=== PATIENT | female | born 1935 | race Caucasian/White ===

== ENCOUNTER 2017-10-12 13:58 | Emergency (ER) | payer OTHER ==
[~2017-10-12] VITALS: Ht 157.5 cm; Wt 59.0 kg
[~2017-10-12 13:58] MED LIST: ATORVASTATIN CA10 M1 PO; CIPRO 500MG TA500 MG PO; COLACE100 MG PO; GOOD SENSE ASPI81 M1 PO; HYDRALAZINE HCL10 M1 PO; HYDRALAZINE HCL10 MG PO; HYDRALAZINE10 MG PO; LORAZEPAM0.5 MG PO; METAMUCIL1 PAC PO; METRONIDAZOLE500 MG PO; NORTRIPTYLINE H10 M1 PO; NORVASC 5MG TAB5 MG PO; OLANZAPINE5 MG PO; PAROXETINE HYDR40 MG PO; STOOL SOFTENER100 M2 PO; ZYPREXA5 M1 PO
--- NOTE | 2017-10-12 14:35 | ED AMS/SEIZURE/WEAK/DIZZY ---
History of Present Illness General Chief Complaint: General Adult Stated Complaint: WEAKNESS Source: patient Exam Limitations: poor historian Vital Signs & Intake/Output Vital Signs & Intake/Output Vital Signs Date Time Temp Pulse Resp B/P B/P Pulse O2 O2 Flow FiO2 Mean Ox Delivery Rate 10/13 1202 98.0 72 17 138/64 94 Room Air / 0619 97.7 70 18 143/63 95 04/ 0210 97.5 62 18 157/70 98 Room Air 10/12 2143 61 18 132/62 97 Room Air / 1958 98.8 58 18 123/58 97 Room Air 10/12 1608 98.5 56 18 155/65 99 Room Air / 1456 96 Room Air / 1408 96.8 70 18 148/80 96 Room Air ED Intake and Output 10/13 0000 10/12 1200 Intake Total Output Total Balance Patient 130 lb Weight Weight Estimated Measurement Method Allergies Coded Allergies: NO KNOWN ALLERGIES (06/08/16) Reconcile Medications Atorvastatin Calcium 10 MG TABLET 1 TAB PO DAILY CHOLESTEROL (Reported) Ciprofloxacin HCl (Cipro) 500 MG TABLET 1 TAB PO BID UTI Docusate Sodium (Stool Softener) 100 MG CAPSULE 1 CAP PO QPM CONSTIPATION ( Reported) Hydralazine HCl 10 MG TABLET 1 TAB PO DAILY HEART (Reported) Oxybutynin Chloride (Oxybutynin Chloride ER) 10 MG TAB.ER.24 1 TAB PO DAILY BLADDER (Reported) Triage Note: PT TO ER WITH SPOUSE C/C "WEAKNESS" FOR UNKNOWN AMOUNT OF TIME. PATIENT POOR HISTORIAN. STATES, "SHE IS DEPRESSED AGAIN". PT DENIES PAIN Triage Nurses Notes Reviewed? yes Onset: Gradual Duration: getting worse Timing: recent history Severity: severe HPI: Patient is a 82-year-old female hypertension, diverticulitis, depression and dyslipidemia who presents emergency room brought in by however immediately left the emergency room in which history is limited due to patient being a poor historian who states that she's been having unknown duration of intermittent episodes of dizziness and room spinning sensation and severe weakness and fatigue. Patient denies any headache blurred vision fevers chills chest pain arm pain jaw pain nausea vomiting abdominal pain Patient denies any illicit drug use denies any smoking or alcohol use. Patient' s last bowel movement was within last 24 hours no blood no melena, Patient can tolerate by mouth patient denies any new medications states she is compliant with her medications Patient stating that she's had intermittent episodes of presyncope and lightheaded sensation however no syncope has occurred (Guillermo Walters) Past History Travel History Traveled to [place] past 21 day No Medical History Any Pertinent Medical History? 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 Hx Contributory? No (Guillermo Walters) Review of Systems Review of Systems Constitutional: Reports: see HPI, malaise, weakness. EENTM: Reports: no symptoms. Respiratory: Reports: no symptoms. Cardiovascular: Reports: no symptoms. GI: Reports: no symptoms. Genitourinary: Reports: no symptoms. Musculoskeletal: Reports: no symptoms. Skin: Reports: no symptoms. Neurological/Psychological: Reports: no symptoms. Hematologic/Endocrine: Reports: no symptoms. Immunologic/Allergic: Reports: no symptoms. All Other Systems: Reviewed and Negative (Guillermo Walters) Physical Exam Physical Exam General Appearance: lethargic Head: atraumatic Eyes: Bilateral: normal appearance, PERRL, EOMI. Ears, Nose, Throat: normal pharynx, normal ENT inspection, hearing grossly normal Neck: normal inspection, supple, full range of motion Respiratory: normal breath sounds, chest non-tender, no respiratory distress Cardiovascular: regular rate/rhythm Peripheral Pulses: 2+ radial (R) Gastrointestinal: normal bowel sounds, soft, non-tender Extremities: normal range of motion Neurologic/Psych: no motor/sensory deficits, awake, alert, oriented x 3 Skin: intact, normal color, warm/dry Lymphatic: no anterior cervical benson Core Measures ACS in differential dx? Yes CVA/TIA Diagnosis No Sepsis Present: No Sepsis Focused Exam Completed? No (Guillermo Walters) Progress Differential Diagnosis: arrythmia, alcohol intoxication, anemia, benign positional vertigo, CVA/stroke, dehydration, drug intoxication, encephalitis, electrolyte imbalance, GI bleed, hypoglycemia, hypoxia, intracranial Hem., intracranial mass/tumor, labrynthitis, meningitis, Meniere's disease, migraine HINOJOSA, multiple sclerosis, pneumonia, postural hypotension, presyncope, post- traumatic vertigo, sepsis, seizure disorder, subarachnoid Hem., UTI/pyelo, vertebrobasilar insuff Plan of Care: Orders Procedure Date/time Status Regular Diet 10/13 B Active Continuous Observation Monitor 10/12 171 Active ED CRISIS PSYCH CONSULT 10/12 1713 Active Add-on Test (ER Only) 10/12 1540 Active MISTAKE 10/12 1510 Active Telemetry/Tire Building Supervisor 10/12 1501 Active URINE DRUG SCREEN FOR ER ONLY 10/12 1501 Complete CULTURE,URINE 10/12 1500 Active EKG 10/12 1405 Active URINALYSIS 10/12 1359 Complete THYROID STIMULATING HORMONE 10/12 1359 Complete TROPONIN LEVEL 10/12 1359 Complete MAGNESIUM 10/12 1359 Complete LACTIC ACID 10/12 1359 Complete FREE T4 10/12 1359 Complete ETHANOL 10/12 1359 Complete COMPREHENSIVE METABOLIC PANEL 10/12 1359 Complete CBC WITHOUT DIFFERENTIAL 10/12 1359 Complete Current Medications Sig/Florencio Start time Last Medication Dose Stop Time Status Admin Ciprofloxacin 500 MG BID 10/12 2200 UNVr 10/13 (Cipro) 10/16 2159 1010 Risperidone 1 MG ONCE ONE 10/13 1999 CAN (Risperidone) 10/12 2000 Atorvastatin Calcium 10 MG DAILY 10/12 1730 UNVr 10/13 (Lipitor) 1010 Laboratory Tests 10/12/17 1659: Lactic Acid Cancelled 10/12/17 1530: Anion Gap 13, Estimated GFR > 60, BUN/Creatinine Ratio 16.7, Glucose 111 H, Lactic Acid 1.1, Calcium 10.0, Magnesium 2.0, Total Bilirubin 0.5, AST 21, ALT 32, Alkaline Phosphatase 76, Troponin I < 0.01, Total Protein 6.5, Albumin 3.8, Globulin 2.7, Albumin/Globulin Ratio 1.4, TSH 1.280, Free T4 1.21, CBC w Diff NO MAN DIFF REQ, RBC 4.90, MCV 90.4, MCH 28.8, MCHC 31.8 L, RDW 15.1 H, MPV 8.7, Gran % 69.6, Lymphocytes % 19.5 L, Monocytes % 7.9, Eosinophils % 2.3, Basophils % 0.7, Absolute Granulocytes 5.1, Absolute Lymphocytes 1.4, Absolute Monocytes 0.6, Absolute Eosinophils 0.2, Absolute Basophils 0, Serum Alcohol < 10.0 10/12/17 1501: Magnesium Cancelled, TSH Cancelled, Free T4 Cancelled, Serum Alcohol Cancelled 10/12/17 1500: Urine Opiates Screen < 100, Methadone Screen < 40, Barbiturate Screen < 60, Ur Phencyclidine Scrn < 6.00, Amphetamines Screen < 100, U Benzodiazepines Scrn < 85, Urine Cocaine Screen < 50, Urine Cannabis Screen < 5.00, Urine Color YEL, Urine Clarity HAZY H, Urine pH 6.0, Ur Specific [place] 1.010, Urine Protein NEG, Urine Ketones NEG, Urine Nitrite POS H, Urine Bilirubin NEG, Urine Urobilinogen 0.2, Ur Leukocyte Esterase MOD H, Ur Microscopic SEDIMENT EXAMINED , Urine WBC 10-15 H, Ur Epithelial Cells FEW, Urine Bacteria MANY H, Granular Casts RARE H, Urine Hemoglobin NEG, Urine Glucose NEG 10/12/17 1359: Glucose 2 Hour Cancelled 10/12/17 1359: Glucose 1/2 Hour Cancelled 10/12/17 1359: Glucose 1 Hour Cancelled 10/12/17 1359: Fasting Glucose Cancelled Microbiology 10/12 1500 URINE ROUT: Urine Culture - RES GRAM NEGATIVE RODS Patient is a poor historian on initial evaluation however patient is noted to be lethargic however is alert and oriented and is following all commands appropriately no concerns of neurovascular deficit No suspicion of CVA She denies any homicidal or suicidal ideation denies even having a history of depression, denies any auditory or visual hallucinations, Nursing does state that patient had significant profound weakness when putting patient from the wheelchair to the bed prior to me evaluating the patient. After IV fluids were administered patient did have improvement of initial clinical presentation of lethargy. No concerns of sepsis blood work was unremarkable patient does have concerns of urinary tract infection Patient was noted to be able to get up out of bed and ambulate with a walker without any assistance and had normal steady gait. Patient does admit that she feels anxious while being in the emergency room. When returning patient to her room she then became excessively anxious and stating that she is severely depressed and stating over and over "I want to , I want to , I want to ," Crisis evaluation will be ordered sitter will be placed Crisis evaluated patient disposition still is pending, discussed handoff with Initial ED EK BPM, LAD Hand-Off Endorsed To: Ho Leblanc MD Endorsed Time: 1800 Pending: consult (Guillermo Walters) Hand-Off Endorsed To: Roge Saldana MD Endorsed Time: 1900 Pending: consult (Ho Leblanc MD) Hand-Off Endorsed To: Preet Ching MD Endorsed Time: 0700 Pending: consult (RE-EVAL) Comments: Patient has been seen and evaluated by outreach clinician. Patient is on antibiotics for UTI. Patient will be reevaluated in the morning. (Roge Saldana MD) Comments: 10/13/2017 1:30:10 PM patient signed out to me by Dr. 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 Patient has been evaluated by the outreach clinician feels the patient is stable from a psychiatric standpoint for discharge. They offered mental health follow-up BUT this was declined by the patient and her . 10/13/2017 1:47:03 PM I have updated Yumiko and her . Her states that she is doing better than when she first arrived to the emergency department. She appears comfortable and offers no complaint at this time. I FEEL she is stable for outpatient management of her urinary tract infection. (Preet Ching MD) Departure Departure Condition: Guarded Referrals: Shala Olivo (PCP/Family) Departure Forms: Customer Survey General Discharge Information (Guillermo Walters) PA/FACILITIES MANAGEMENT EXECUTIVE Co-Sign Statement Statement: ED Attending supervision documentation- x I saw and evaluated the patient. I have also reviewed all the pertinent lab results and diagnostic results. I agree with the findings and the plan of care as documented in the PA's/FACILITIES MANAGEMENT EXECUTIVE's documentation. [] I have reviewed the ED Record and agree with the PA's/FACILITIES MANAGEMENT EXECUTIVE's documentation. [] Additions or exceptions (if any) to the PAs/FACILITIES MANAGEMENT EXECUTIVE's note and plan are summarized below: [] (Ho Leblanc MD) Departure Disposition: HOME OR SELF CARE Clinical Impression Primary Impression: Depression Qualifiers: Depression Type: unspecified Qualified Code: F32.9 - Major depressive disorder, single episode, unspecified Secondary Impressions: Anxiety Dizziness UTI (urinary tract infection) Qualifiers: Urinary tract infection type: site unspecified Hematuria presence: without hematuria Qualified Code: N39.0 - Urinary tract infection, site not specified Weakness Additional Instructions: Cipro as prescribed. Maintain a good fluid intake. Follow-up with her primary care physician within 24-48 hours for reevaluation. Return if any concerns or sudden worsening. Please note that there might be incidental findings in your evaluation that are unrelated to the current emergency department visit. Please notify your primary care doctor about this emergency department visit in order to obtain and review all of the testing performed so that these incidental findings can be monitored as needed. If you had an x-ray performed, please understand that some fractures may not be seen on the initial set of x-rays. If your symptoms persist you might need a repeat set of x-rays to check for such a fracture. If you had a laceration evaluated, please understand that foreign bodies such as glass or wood may not be visible to the naked eye or on plain x-rays. If the wound becomes red, swollen, increasingly more painful or if there is any drainage from the wound, please have it reevaluated by a physician for the possibility of a retained foreign body. If you're unable to follow up as outlined in the discharge instructions please return to the emergency department. Thank you for choosing the [facility] Emergency Department for your care. It was a pleasure to serve you today. Preet Ching M.D. [facility] Prescriptions: Current Visit Scripts Ciprofloxacin HCl (Cipro) 1 TAB PO BID #14 TAB (Jeane ADLER,Preet Coppola) Critical Care Note Critical Care Note Critical Care Time: 30-74 min (Guillermo Walters)
[2017-10-12] MEDS ORDERED: OXYBUTYNIN CHLO10 M1 PO (15:09)
[2017-10-12] MEDS ORDERED: STOOL SOFTENER100 M3 PO (15:11)
[2017-10-12 15:57] LABS: ABSOLUTE BASOPHIL COUNT 0 /CUMM (0.0-0.2); ABSOLUTE EOSINOPHIL COUNT 0.2 /CUMM (0.0-0.7); ABSOLUTE GRANULOCYTE CT 5.1 /CUMM (1.4-6.5); ABSOLUTE LYMPH COUNT 1.4 /CUMM (1.2-3.4); ABSOLUTE MONOCYTE COUNT 0.6 /CUMM (0.10-0.60); BASOPHIL % 0.7 % (0.0-2.0); EOSINOPHIL % 2.3 % (0-5); GRANULOCYTE % 69.6 % (42.2-75.2); HEMATOCRIT 44.3 % (37-47); MEAN CORPUSCULAR HGB 28.8 PG (27.0-31.0); MEAN CORPUSCULAR HGB CONC 31.8 G/DL (33.0-37.0); MEAN CORPUSCULAR VOLUME 90.4 FL (81.0-99.0); MEAN PLATELET VOLUME 8.7 FL (7.4-10.4); PLATELET COUNT 328 /CUMM (130-400); RBC DISTRIBUTION WIDTH 15.1 % (11.5-14.5); WHITE BLOOD CELL COUNT 7.3 /CUMM (4.8-10.8)
[2017-10-12] MEDS ORDERED: CIPRO500 M1 PO (16:58)
--- NOTE | 2017-10-12 19:05 | ED PSYCH CRISIS CONSULTATION ---
See Addendum Crisis Consult Basic Assessment Date of Consult: 10/12/17 Responsible Person/Accompanied By: Brought to the ED by her Insurance Authorization: Insurance #1: Insurance name[facility] Phone number: Policy number: [id number] Group number: Authorization number: ED Provider: Patient's ED Provider: Guillermo Walters Primary Care Physician: Patient's PCP: Shala Olivo PCP's Current Psychiatrist: None Chief Complaint: General Adult Patient's Quote: "I don't know what's wrong, something is wrong." Present Illness: The patient is an 82 year old , female brought to the ED, by her for weakness and depression. The patient is alert and oriented to person, place and time, however answered the majority of questions "I don't know." She became tearful when answering questions and kept repeating "I'm scared," but I don't understand it." She was unable to elaborate on why she was scared and what prompted her to come to the ED. She stated that she is unsure if she is depressed or anxious, however believes that she feels helpless, hopeless, worthless and useless. She denies any SI / HI /AH / VH, however states "I want to ." When asked to elaborate on wanting to , she states "I don't understand it," but confirms she made the statements. She lives with her (Roberto), and sates she has 5 children. When asked if she is close with her children, she replies, " I don't know." She reports that her stressors, is that she "does nothing but sit in a chair all day." She was not able to elaborate on why she has been doing nothing and if that is a change for her. She has a long history of depression and subsequent treatment. She has been treated at [facility] in IOP, OPS and [facility]PS. Per records she has also been sent to [facility] in the past. Per records she did not do well in IOP and was transitioned to OPS, who recommended that she follow up with the [facility] (March,). The patient states that she was not sure if she followed up with [facility] and was not sure, if she was on medications for her mental health. She is not sure what would be helpful at this time. PRISCILA spoke with her , Roberto Navarro ([phone]), for collateral information. Roberto reports that the patient does have a long history of mental health issues and subsequent treatment. Roberto states that the patient is not currently in any treatment and stopped her medications, because "they made her constipated." He reports that her last hospitalization was at [facility], however that they were very unhappy with their experience. Roberto states that the patient was doing okay until the last week and a half. He states that she became depressed and did not partake in any of her normal activities (reading & watching tv), but instead "she has been sitting in a chair and looking at the wall." He has not heard her make any suicidal statements, however is concerned about her depression. He believes that she requires another hospitalization at this time and would like it to be on [facility]. Patient's Address: [address] [place] [address] Other Phone Number: Who Do You Live With? Spouse Family/Informants Interviewed: - Roberto Navarro- [phone] Allergies - Coded Allergies: NO KNOWN ALLERGIES (06/08/16) Current Medications - Scheduled Medications Atorvastatin Calcium 10 MG TABLET 1 TAB PO DAILY CHOLESTEROL (Reported) [facility] 2136 Ciprofloxacin HCl (Cipro) 500 MG TABLET 1 TAB PO BID UTI #14 TAB Prescribed by Guillermo Gage on 10/12/17 Docusate Sodium (Stool Softener) 100 MG CAPSULE 1 CAP PO QPM CONSTIPATION ( Reported) Entered as Reported by Isai Alves on 10/12/17 1511 Hydralazine HCl 10 MG TABLET 1 TAB PO DAILY HEART #180 (Reported) Entered as Reported by Isai Alves on 05/15/16 0820 Oxybutynin Chloride (Oxybutynin Chloride ER) 10 MG TAB.ER.24 1 TAB PO DAILY BLADDER #30 (Reported) Entered as Reported by Isai Alves on 10/12/17 1509 Laboratory Results: Laboratory Tests 10/12/17 1659: Lactic Acid Cancelled 10/12/17 1530: Anion Gap 13, Estimated GFR > 60, BUN/Creatinine Ratio 16.7, Glucose 111 H, Lactic Acid 1.1, Calcium 10.0, Magnesium 2.0, Total Bilirubin 0.5, AST 21, ALT 32, Alkaline Phosphatase 76, Troponin I < 0.01, Total Protein 6.5, Albumin 3.8, Globulin 2.7, Albumin/Globulin Ratio 1.4, TSH 1.280, Free T4 1.21, CBC w Diff NO MAN DIFF REQ, RBC 4.90, MCV 90.4, MCH 28.8, MCHC 31.8 L, RDW 15.1 H, MPV 8.7, Gran % 69.6, Lymphocytes % 19.5 L, Monocytes % 7.9, Eosinophils % 2.3, Basophils % 0.7, Absolute Granulocytes 5.1, Absolute Lymphocytes 1.4, Absolute Monocytes 0.6, Absolute Eosinophils 0.2, Absolute Basophils 0, Serum Alcohol < 10.0 10/12/17 1501: Magnesium Cancelled, TSH Cancelled, Free T4 Cancelled, Serum Alcohol Cancelled 10/12/17 1500: Urine Opiates Screen < 100, Methadone Screen < 40, Barbiturate Screen < 60, Ur Phencyclidine Scrn < 6.00, Amphetamines Screen < 100, U Benzodiazepines Scrn < 85, Urine Cocaine Screen < 50, Urine Cannabis Screen < 5.00, Urine Color YEL, Urine Clarity HAZY H, Urine pH 6.0, Ur Specific [place] 1.010, Urine Protein NEG, Urine Ketones NEG, Urine Nitrite POS H, Urine Bilirubin NEG, Urine Urobilinogen 0.2, Ur Leukocyte Esterase MOD H, Ur Microscopic SEDIMENT EXAMINED , Urine WBC 10-15 H, Ur Epithelial Cells FEW, Urine Bacteria MANY H, Granular Casts RARE H, Urine Hemoglobin NEG, Urine Glucose NEG 10/12/17 1359: Glucose 2 Hour Cancelled 10/12/17 1359: Glucose 1/2 Hour Cancelled 10/12/17 1359: Glucose 1 Hour Cancelled 10/12/17 1359: Fasting Glucose Cancelled Microbiology 10/12 1500 URINE ROUT: Urine Culture - RECD Past History Past Medical History Neurological: NONE EENT: NONE Cardiovascular: hypertension, hyperlipidemia Respiratory: NONE Gastrointestinal: NONE Hepatic: NONE Renal: NONE Musculoskeletal: spinal stenosis Psychiatric: depression Endocrine: NONE Blood Disorders: NONE Cancer(s): NONE 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 Physical Limitations (Interventions): Ambulates with a walker at times Psychiatric Treatment History Psych Treatment Psychiatric Treatment Yes Inpatient Treatment Yes Outpatient Treatment Yes Location of Treatment [facility], [facility], [facility], [facility] Reason for Treatment Depression Dates of Treatment Multiple dates. Last OPS in March 2017, [facility] 2015, [facility]- 2015 Response to Treatment The patients reports that they were not happy with [facility]. Per records she did not do well in IOP and was transitioned to OPS for a period of time before being referred to the [facility]. Diagnosis by History: Major Depressive Disorder Substance Use/Abuse History Drug Use/Abuse Substances Used/Abused No First Use N/A Last Used N/A How much used/taken N/A How often N/A For how long N/A Route of use N/A Substance Abuse Treatment Substance Abuse Treatment Past Substance Abuse TX No Inpatient Treatment No Outpatient Treatment No Location of Treatment N/A Reason for Treatment N/A Dates of Treatment N/A Response to Treatment N/A Comments: N/A Current Mental Status Mental Status Orientation: Person, Place, Situation Affect: Anxious (tearful) Speech: Soft (at times) Neuro-vegetative: Helpless, Sleep Disturbance, Decrease in normal daily activites. Appearance Appearance- Dress/Hygiene: She was lying in bed, neat clean and well kempt. Behaviors Thought Process: Disorganized, She was unable to answer the majority of questions asked and when she did answer she could not elaborate and stated that she did not understand. Thought Content: WNL Memory: Impaired ("I don't know.") Insight: WNL SI/HI Risk Assessment Past Suicidal Ideation/Attempts No (Per ) Current Suicidal Ideation/Att Yes Past Homicidal Ideation/Att: No Current Homicidal Ideation/Attempts No Degree of Intent: The patient denies any thoughts to harm herself or others, however kept repeating " I want to ." She could not elaborate and said that she did not understand why she was making the statment. She became upset and states that she is very scared. Danger To: N/A Gravely Disabled: Symptoms of depression Risk Factors: age (under 24/over 65), high anxiety/distress, SA/MH hospitalized Lethality Ratin PTSD Checklist PTSD Done? pt unable to participate (Based on current presentation) ED Management Sitter: Yes Restraints: No DSM5/PS Stressors/Medical Prob Diagnosis' (DSM 5, Stressors, Medical): F32.9 Unspecfied Depressive Disorder Medical: Hypertension and hyperlipidemia Stressors: Unclear Current GAF: 25 Comments: N/A Departure Disposition Psych Medical Clearance Date: 10/12/17 Medically Cleared at: 1700 Time Started: 1715 Time Ended: 1744 Psychiatrist Consulted: Dr. Wood Date Disposition Established: 10/12/17 Time Disposition Established: 1929 Plan for Disposition - Modality: Hold over for reassessment and possible hospitalization. Contact: N/A Telephone: N/A Rationale for Disposition: The patient presents to the ED with increased depression, feeling helpless, hopeless, worthless and useless. She is alert and oriented, however is not able to answer the majority of questions asked. She became very tearful and continued to repeat that she is scared. Per DIANDRA Gage she has a UTI that they are treating. She will be held overnight to see if she is better able to answer questions in the AM. If she continues to present in this manner, then she will more then likely require an inpatient hospitalization and her prefers CPS. Case dicussed with Dr. Ayala and he is in agreement with the plan. Additional Instructions: N/A Referrals Shala Olivo (PCP/Family)
[2017-10-13 12:02] VITALS: BP 138/64
== END 2017-10-13 14:01 ==
LOC: ERH 13:58
PROVIDERS: Physician Assistant Medical
DX: F32.9 Major depressive disorder, single episode, unspecified (principal); F41.9 Anxiety disorder, unspecified; N39.0 Urinary tract infection, site not specified; R42 Dizziness and giddiness
CPT/HCPCS: 82951; 82952; 80307; 81001; 87086; 93005; 93010; G0463; G0480; J0696

== ENCOUNTER 2017-10-16 10:37 | Emergency (ER) | payer OTHER ==
[~2017-10-16] VITALS: Ht 157.5 cm; Wt 68.0 kg
[~2017-10-16 10:37] MED LIST changes: +CIPRO500 M1 PO; +OXYBUTYNIN CHLO10 M1 PO; +STOOL SOFTENER100 M3 PO
--- NOTE | 2017-10-16 12:30 | ED AMS/SEIZURE/WEAK/DIZZY ---
History of Present Illness General Chief Complaint: General Adult Stated Complaint: WEAKNESS,?UTI,"I FEEL LIKE I'M HAVING A BREAKDOWN" Source: patient Exam Limitations: poor historian Vital Signs & Intake/Output Vital Signs & Intake/Output Vital Signs Date Time Temp Pulse Resp B/P B/P Pulse O2 O2 Flow FiO2 Mean Ox Delivery Rate 10/16 2030 88 18 129/68 94 Room Air 10/16 1800 98.0 64 18 122/78 96 Room Air 10/16 1414 98.3 58 18 137/65 95 Room Air 10/16 1054 98.2 90 16 130/83 96 Room Air Allergies Coded Allergies: No Known Allergies (10/16/17) Triage Note: PT TO ED FOR "ONSET OF NERVOUS BREAKDOWN" REPORTS FEELING SAFE AT HOME. DENIES SI/HI. DENIES PAIN. DAUGHTER REPORTS PT WAS PREVIOUSLY PRESCRIBED SOMETHING FOR DEPRESSION BUT PT AND DAUGTHER DO NOT KNOW WHEN PT STOPPED TAKING MEDICATION. PT NOW REPORTING ANXIETY. WHEN ASKED ABOUT STRESSORS AT HOME PT STATES "I DONT KNOW" WAS SEEN AT [facility] ON THURSDAY 10/12 FOR UTI, PRESCRIBED CIPRO. Triage Nurses Notes Reviewed? yes HPI: Patient presents for evaluation of generalized weakness and the feeling "like I' m having a breakdown". Patient states that she has been feeling sad with a poor appetite and poor sleep recently but is unable to say for how long. She was seen in the emergency department earlier this week and diagnosed with urinary tract infection and has been taking Cipro for this. Patient denies any urinary tract signs or symptoms at this time. According to her daughter who has provided additional history, she has been treated for depression in the past but at some point discontinue to medications. History is somewhat limited as the patient frequently answers questions with "I don't know". Daughter provided additional history regarding some marital issues she is currently having and she feels this may be impacting on the patient's overall emotional state. (Jeane ADLER,Preet Coppola) Reconcile Medications Atorvastatin Calcium 10 MG TABLET 1 TAB PO DAILY CHOLESTEROL (Reported) Ciprofloxacin HCl (Cipro) 500 MG TABLET 1 TAB PO BID UTI Docusate Sodium (Stool Softener) 100 MG CAPSULE 1 CAP PO QPM CONSTIPATION ( Reported) Hydralazine HCl 10 MG TABLET 1 TAB PO DAILY HEART (Reported) Olanzapine (Zyprexa Zydis) 5 MG TAB.RAPDIS 1 TAB PO QPM depression Oxybutynin Chloride (Oxybutynin Chloride ER) 10 MG TAB.ER.24 1 TAB PO DAILY BLADDER (Reported) (Major ADLER,Darion Rojas) Past History Travel History Traveled to [place] past 21 day No Medical History Any Pertinent Medical History? 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 Hx Contributory? No (Jeane ADLER,Preet Coppola) Review of Systems Review of Systems Constitutional: Reports: see HPI. EENTM: Reports: no symptoms. Respiratory: Reports: no symptoms. Cardiovascular: Reports: no symptoms. GI: Reports: no symptoms. Genitourinary: Reports: no symptoms. Musculoskeletal: Reports: no symptoms. Skin: Reports: no symptoms. Neurological/Psychological: Reports: see HPI. Hematologic/Endocrine: Reports: no symptoms. Immunologic/Allergic: Reports: no symptoms. All Other Systems: Reviewed and Negative (Jeane ADLER,Preet Coppola) Physical Exam Physical Exam General Appearance: SEE BELOW Core Measures ACS in differential dx? No CVA/TIA Diagnosis No Sepsis Present: No Sepsis Focused Exam Completed? No (Preet Ching MD) Progress Differential Diagnosis: UTI/pyelo Plan of Care: Orders Procedure Date/time Status Heart Healthy Diet 10/16 D Active URINE DRUG SCREEN FOR ER ONLY 10/16 1234 Complete URINALYSIS 10/16 1234 Complete ETHANOL 10/16 1234 Complete CBC WITHOUT DIFFERENTIAL 10/16 1234 Complete BASIC METABOLIC PANEL 10/16 1234 Complete ED CRISIS PSYCH CONSULT 10/16 1234 Active Current Medications Sig/Florencio Start time Last Medication Dose Stop Time Status Admin Sodium Chloride 1,000 ML BOLUS ONE 10/16 1400 CAN (Normal Saline 0.9%) 10/16 1459 Laboratory Tests 10/16/17 1250: Urine Opiates Screen < 100, Methadone Screen < 40, Barbiturate Screen < 60, Ur Phencyclidine Scrn < 6.00, Amphetamines Screen < 100, U Benzodiazepines Scrn < 85, Urine Cocaine Screen < 50, Urine Cannabis Screen < 5.00, Urine Color YEL, Urine Clarity CLEAR, Urine pH 6.0, Ur Specific [place] 1.020, Urine Protein NEG, Urine Ketones NEG, Urine Nitrite NEG, Urine Bilirubin NEG, Urine Urobilinogen 0.2, Ur Leukocyte Esterase NEG, Ur Microscopic EXAM NOT REQUIRED, Urine Hemoglobin NEG, Urine Glucose NEG 10/16/17 1243: Anion Gap 12, Estimated GFR > 60, BUN/Creatinine Ratio 15.0, Glucose 93, Calcium 10.0, CBC w Diff NO MAN DIFF REQ, RBC 5.07, MCV 89.8, MCH 29.3, MCHC 32.6 L, RDW 14.9 H, MPV 8.6, Gran % 71.3, Lymphocytes % 17.3 L, Monocytes % 8.9, Eosinophils % 1.9, Basophils % 0.6, Absolute Granulocytes 5.4, Absolute Lymphocytes 1.3, Absolute Monocytes 0.7 H, Absolute Eosinophils 0.1, Absolute Basophils 0, Serum Alcohol < 10.0 Initial ED EKG: none, DEPRESSION, ANXIETY, BIPOLAR DISORDER, PERSONALITY DISORDER, DEMENTIA Comments: 10/16/2017 3:34:02 PM patient has been evaluated by the business systems architect will be observed in the emergency department for improvement with Zyprexa. 10/16/2017 7:30:01 PM patient signed out to Dr. Gonsalves at [employer]. (Jeane ADLER,Preet Coppola) Departure Departure Condition: Stable Referrals: Shala Olivo (PCP/Family) Departure Forms: Customer Survey General Discharge Information (Jeane ADLER,Preet Coppola) Departure Disposition: HOME OR SELF CARE Clinical Impression Primary Impression: Depression Prescriptions: Current Visit Scripts Olanzapine (Zyprexa Zydis) 1 TAB PO QPM #10 TAB Comments 10/16/17, 21:03... PT CLEARED BY PSYCHE... HAS FOLLOW UP ON THURSDAY... PER PSYCHE , WILL PRESCRIBE A BRIDGE PRESCRIPTION OF ZYPREXA.... PT SAFE FOR DISCHARGE. (Major ADLER,Darion Rojas) Comments 10/16/17, 21:03... PT CLEARED BY PSYCHE... HAS FOLLOW UP ON THURSDAY... PER PSYCHE , WILL PRESCRIBE A BRIDGE PRESCRIPTION OF ZYPREXA.... PT SAFE FOR DISCHARGE. (Major ADLER,Darion Rojas)
[2017-10-16 12:57] LABS: ABSOLUTE BASOPHIL COUNT 0 /CUMM (0.0-0.2); ABSOLUTE EOSINOPHIL COUNT 0.1 /CUMM (0.0-0.7); ABSOLUTE GRANULOCYTE CT 5.4 /CUMM (1.4-6.5); ABSOLUTE LYMPH COUNT 1.3 /CUMM (1.2-3.4); ABSOLUTE MONOCYTE COUNT 0.7 /CUMM (0.10-0.60); BASOPHIL % 0.6 % (0.0-2.0); EOSINOPHIL % 1.9 % (0-5); GRANULOCYTE % 71.3 % (42.2-75.2); HEMATOCRIT 45.5 % (37-47); MEAN CORPUSCULAR HGB 29.3 PG (27.0-31.0); MEAN CORPUSCULAR HGB CONC 32.6 G/DL (33.0-37.0); MEAN CORPUSCULAR VOLUME 89.8 FL (81.0-99.0); MEAN PLATELET VOLUME 8.6 FL (7.4-10.4); PLATELET COUNT 350 /CUMM (130-400); RBC DISTRIBUTION WIDTH 14.9 % (11.5-14.5); RED BLOOD CELL CT 5.07 /CUMM (4.20-5.40); WHITE BLOOD CELL COUNT 7.6 /CUMM (4.8-10.8)
--- NOTE | 2017-10-16 16:11 | ED PSYCH CRISIS CONSULTATION ---
See Addendum Crisis Consult Basic Assessment Date of Consult: 10/16/17 Responsible Person/Accompanied By: Roberto Navarro, Insurance Authorization: Insurance #1: Insurance name: MEDICARE [employer] HMO Phone number: Policy number: [id number] Group number: Authorization number: ED Provider: Patient's ED Provider: Jeane ADLER,Preet Coppola Primary Care Physician: Patient's PCP: Shala Olivo PCP's Current Psychiatrist: none presently, but has upcoming appt. with Dr. Aguirre Chief Complaint: Anxious and depressed Patient's Quote: "I can"t think straight. I don't feel well" Present Illness: Patient is an 82 year old (for more than 40 years) woman who presents for @nd time this week to E.D. with complaint today that she can't get her thoughts in order, and, in fact, was unable to really participate in initial evaluation. Patient complained of racing thoughts, and responded "I don't know" to most questions. Patient was in apparent discomfort due to feeling uncomfortable and disorganized. Patient also is slightly agitated. Peer , Roberto, patient has been "like this" off and on x at least 10 years, but worse in past 4 years. Patient was inable to tell me her doctor's name, but she did admit that she stopped going, and stopped taking her medications. Patient did report that she has beebn hospitalized at [facility] in the past. When patient was seen in E.D. on 10-12-17, she was treated for a UTI with Cipro, and given a follow-up appiontment with Dr. Aguirre. Patient was not able to tell me this. Patient's Address: [address] [place] [address] Other Phone Number: Who Do You Live With? Spouse Family/Informants Interviewed: , Roberto Allergies - Coded Allergies: No Known Allergies (10/16/17) Current Medications - Scheduled Medications Atorvastatin Calcium 10 MG TABLET 1 TAB PO DAILY CHOLESTEROL (Reported) Entered as Reported by Madyson Newell MD on 02/09/14 5503 Ciprofloxacin HCl (Cipro) 500 MG TABLET 1 TAB PO BID UTI #14 TAB Prescribed by Guillermo Gage on 10/12/17 Docusate Sodium (Stool Softener) 100 MG CAPSULE 1 CAP PO QPM CONSTIPATION ( Reported) Entered as Reported by Isai Alves on 10/12/17 1511 Hydralazine HCl 10 MG TABLET 1 TAB PO DAILY HEART #180 (Reported) Entered as Reported by Isai Alves on 05/15/16 0820 Oxybutynin Chloride (Oxybutynin Chloride ER) 10 MG TAB.ER.24 1 TAB PO DAILY BLADDER #30 (Reported) Entered as Reported by Isai Alves on 10/12/17 1509 Laboratory Results: Laboratory Tests 10/16/17 1250: Urine Opiates Screen < 100, Methadone Screen < 40, Barbiturate Screen < 60, Ur Phencyclidine Scrn < 6.00, Amphetamines Screen < 100, U Benzodiazepines Scrn < 85, Urine Cocaine Screen < 50, Urine Cannabis Screen < 5.00, Urine Color YEL, Urine Clarity CLEAR, Urine pH 6.0, Ur Specific [place] 1.020, Urine Protein NEG, Urine Ketones NEG, Urine Nitrite NEG, Urine Bilirubin NEG, Urine Urobilinogen 0.2, Ur Leukocyte Esterase NEG, Ur Microscopic EXAM NOT REQUIRED, Urine Hemoglobin NEG, Urine Glucose NEG 10/16/17 1243: Anion Gap 12, Estimated GFR > 60, BUN/Creatinine Ratio 15.0, Glucose 93, Calcium 10.0, CBC w Diff NO MAN DIFF REQ, RBC 5.07, MCV 89.8, MCH 29.3, MCHC 32.6 L, RDW 14.9 H, MPV 8.6, Gran % 71.3, Lymphocytes % 17.3 L, Monocytes % 8.9, Eosinophils % 1.9, Basophils % 0.6, Absolute Granulocytes 5.4, Absolute Lymphocytes 1.3, Absolute Monocytes 0.7 H, Absolute Eosinophils 0.1, Absolute Basophils 0, Serum Alcohol < 10.0 Past History Past Medical History Neurological: NONE EENT: NONE Cardiovascular: hypertension, hyperlipidemia Respiratory: NONE Gastrointestinal: NONE Hepatic: NONE Renal: uti Musculoskeletal: NONE Psychiatric: depression Endocrine: NONE Blood Disorders: NONE Cancer(s): NONE 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 Physical Limitations (Interventions): Ambulates with a walker at times Psychiatric Treatment History Psych Treatment Psychiatric Treatment Yes Inpatient Treatment Yes Outpatient Treatment Yes Location of Treatment [facility] (in-pt.) and [facility] out_ pt. Also [facility] Reason for Treatment anxiety and depression and racing thoughts Dates of Treatment past 10 + tears. 4 in-patient admission to [facility] over 8 years Response to Treatment stabilized. Diagnosis by History: Major Depressive Disorder Substance Use/Abuse History Drug Use/Abuse Substances Used/Abused Yes Substance Used/Abused Benzodiazepines First Use 10- 12 years ago, prescibed Last Used 2015 How much used/taken unknown How often daily For how long over 8 year period. Route of use p.o. Substance Abuse Treatment Substance Abuse Treatment Past Substance Abuse [place] No Current Mental Status Mental Status Orientation: Confused Affect: Anxious, Depressed Speech: Hyper-verbal, Pressured Neuro-vegetative: Concentration Poor Appearance Appearance- Dress/Hygiene: adequately dressed. Neat Behaviors Thought Process: Disorganized Thought Content: racing Memory: Impaired Insight: Fair SI/HI Risk Assessment Past Suicidal Ideation/Attempts Yes Current Suicidal Ideation/Att No Past Homicidal Ideation/Att: No Current Homicidal Ideation/Attempts No Degree of Intent: None Gravely Disabled: Lack of Insight Risk Factors: age (under 24/over 65), high anxiety/distress, SA/MH hospitalized, limited support Lethality Ratin (mild) PTSD Checklist PTSD Done? pt unable to participate ED Management Sitter: No Restraints: No DSM5/PS Stressors/Medical Prob Diagnosis' (DSM 5, Stressors, Medical): Major Depressive disorder, recurrent, severe F3 Comments: Patient to be given 5 m.g. Zyprexa, which she has been taking x years in past, to help her to organize her thoughts Departure Disposition Psych Medical Clearance Date: 10/16/17 Medically Cleared at: 1420 Time Started: 1425 Time Ended: 1505 Psychiatrist Consulted: Darion Feliz MD Time Disposition Established: 151 Plan for Disposition - Modality: re-evaluation Rationale for Disposition: patient is too confused to participate in evaluation. Patient states that she is not suicidal. Patient com[plaining of being very anxious and having problems "thinking sraight " Referrals Shala Olivo (PCP/Family)
--- NOTE | 2017-10-16 16:39 | ED PSY CRISIS COLLATERAL NOTE ---
Collateral Note Collateral Note Family/Inform/[place] Contacts: Roberto Navarro, was called and provided background information on patient, Yumiko Boone),his . Patient had been brought to E.D. by her daughter, but daughter had left E.D. right away. indicated that patient has had familiar exacerbation of depressed symptoms, which occurs after patient stops medication and going to appointments. Patient has been exhibiting these symptoms for more than 10 years, and she does get stabilized, but, then, gets preoccupied with potential side effects, and stops the meds. sounds like he has limited influence over patient, although he, too, stressed that they have been for more than 40 years. will go along with recommendations.
[2017-10-16 20:31] VITALS: BP 129/68
[2017-10-16] MEDS ORDERED: ZYPREXA ZYDIS5 M1 PO (21:02)
== END 2017-10-16 21:23 ==
LOC: ERH 10:37
PROVIDERS: Emergency Medicine
DX: F32.9 Major depressive disorder, single episode, unspecified (principal)
CPT/HCPCS: 80307; 81003; G0463; G0480